=== PATIENT | male | born 1950 | race Caucasian/White ===

== ENCOUNTER 2024-01-09 05:34 | Day surgery (SDC) | payer MEDICARE, OTHER, SELFPAY ==
[2024-01-09] VITALS (15 sets, daily range): BP systolic 112–154; BP diastolic 52–93; PULSE 53–78; RESP 16–18; TEMP 36–37.1; O2SAT 93–100; BMI 23.5
[2024-01-09] MEDS: Lactated Ringers 1,000 ML 15 ML IV ×2 (06:27→10:24)
[2024-01-09 06:34] LABS: Hemoglobin 12.6 g/dL (13.0-16.5); Mean Corp Hgb Conc 32.3 g/dL (32-36); Mean Corpuscular Hgb 30.7 pg (27.0-32.0); Mean Corpuscular Volume 95.1 fL (80-94); Mean Platelet Vol. 10.4 fl (6.2-12.0); Platelet Count 229 K/mm3 (150-450); RBC Distribution Width SD 49.5 fl (35.1-43.9); White Blood Count 6.3 K/mm3 (4.4-11.0)
[2024-01-09] MEDS: Cefazolin 2 GM in Syringe IV (07:32)
[2024-01-09] MEDS: Bupivacaine Mpf 0.5% 30 ML VIAL (07:49)
[2024-01-09] MEDS: Ketorolac 15 MG/ML Vial IV ×2 (10:24→18:25)
[2024-01-09] MEDS: Ciprofloxacin 400 MG/200 ML BAG 200 MG IV ×2 (12:39→21:27)
[2024-01-09] MEDS: 0.9% Saline Lock 10 ML Syringe IV (18:24)
[2024-01-09] MEDS: Tamsulosin HCl 0.4 MG Capsule 0.8 MG PO (21:27)
[2024-01-09] MEDS: Finasteride 5 MG Tablet PO (21:27)
[2024-01-09] MEDS: Docusate Sodium 100 MG Capsule 200 MG PO (21:27)
[2024-01-09] MEDS: oxyCODONE 5 MG Tablet PO (21:33)
[2024-01-09] MEDS: Acetaminophen 325 MG Tablet 650 MG PO (21:34)
[2024-01-10 03:08] VITALS: BP 118/63; PULSE 64; RESP 16; TEMP 36.6; O2SAT 94
[2024-01-10] MEDS: Ketorolac 15 MG/ML Vial IV (03:24)
[2024-01-10 10:24] VITALS: BP 135/69; PULSE 60; RESP 16; TEMP 37.1; O2SAT 96
[2024-01-10] MEDS: Docusate Sodium 100 MG Capsule 200 MG PO (10:31)
== END 2024-01-10 13:01 | disposition home or self-care (01) ==
LOC: SDC 05:37 → AC 05:40 → MS3 09:47
PROVIDERS: Anesthesiology; PCP Internal Medicine Infectious Disease; Referring Provider Urology; Visit Provider Urology
PROC: 0VT04ZZ Resection of Prostate, Percutaneous Endoscopic Approach (ICD-10-PCS; CPT 55867; principal; 2024-01-09 07:10)
DX: N40.1 Benign prostatic hyperplasia with lower urinary tract symptoms (principal); C61 Malignant neoplasm of prostate; F17.210 Nicotine dependence, cigarettes, uncomplicated; N13.8 Other obstructive and reflux uropathy
CPT/HCPCS: 55867; S2900; 00840; 36415; 85027; 88309; J7120; A4216; J0744; J2405

== ENCOUNTER → 2024-04-19 | Outpatient (CLI) | payer MEDICARE, OTHER, SELFPAY | END | disposition home or self-care (01) | LOC: LAB 09:44 | PROVIDERS: PCP Internal Medicine Infectious Disease; Referring Provider Nurse Practitioner; Visit Provider Nurse Practitioner | DX: C61 Malignant neoplasm of prostate (principal) | CPT/HCPCS: 36415; 84153 ==

== ENCOUNTER → 2024-06-01 | Outpatient (CLI) | payer MEDICARE, OTHER, SELFPAY ==
--- NOTE | 2024-06-01 08:00 | PET_ITS ---
EXAM: Pilarify F 18 PET CLINICAL HISTORY: Malignant neoplasm of prostate. COMPARISON: None TECHNIQUE: Agent: Pilarify F 18 PET Dose: 9.404 mCi Route: Left antecubital fossa. Injection time: 7:51 a.m. scan start time: 8:[address] images for attenuation correction and anatomic localization followed by PET images from the skull base to the mid thighs were obtained. No previous exams are available for comparison. FINDINGS: Neck: There is normal uptake within the soft tissues of the neck and glandular structures without focal areas of abnormal increased metabolism. Chest: Normal uptake within the soft tissues of the chest without focal areas of abnormal increased uptake. Abdomen/pelvis: Normal distribution of radiotracer within the GI tract and urinary bladder and kidneys. Increased uptake is seen in the prostate gland. No evidence of adenopathy. Musculoskeletal: PET/PET/CT Tumor Base -Thigh Subs IMPRESSION: Increased uptake in the prostate gland. No additional areas of increased uptak e. Prostate uptake is sometimes normal and sometimes abnormal. Correlate clinically. Reading [facility]
== END | disposition home or self-care (01) ==
PROVIDERS: PCP Internal Medicine Infectious Disease; Referring Provider Urology; Visit Provider Urology
DX: C61 Malignant neoplasm of prostate (principal)
CPT/HCPCS: 78815; A9595

== ENCOUNTER → 2024-09-13 | Outpatient (CLI) | payer MEDICARE, OTHER, SELFPAY ==
[2024-09-13 12:02] LABS: PSA,Total- Diagnostic 3.43 ng/mL (0.00-4.00)
== END | disposition home or self-care (01) ==
LOC: LAB 10:43
PROVIDERS: PCP Internal Medicine Infectious Disease; Referring Provider Nurse Practitioner; Visit Provider Nurse Practitioner
DX: C61 Malignant neoplasm of prostate (principal)
CPT/HCPCS: 36415; 84153

== ENCOUNTER → 2024-12-16 | Outpatient (CLI) | payer MEDICARE, OTHER, SELFPAY ==
[2024-12-16 12:32] LABS: PSA,Total- Diagnostic 1.63 ng/mL (0.00-4.00)
== END | disposition home or self-care (01) ==
LOC: LAB 10:36
PROVIDERS: PCP Internal Medicine Infectious Disease; Referring Provider Urology; Visit Provider Urology
DX: C61 Malignant neoplasm of prostate (principal)
CPT/HCPCS: 36415; 84153